=== PATIENT | male | born 1990 | race American Indian/Alaskan Native ===

== ENCOUNTER 2017-11-04 14:01 | Emergency (ER) | payer SELFPAY ==
[2017-11-04 14:12] VITALS: BP 118/74
[2017-11-04 14:43] LABS: Bilirubin,Urine NEG (Negative); Blood,Urine NEG (Negative); Color,Urine Yellow (Yellow); Mucus,Urine FEW /HPF; Protein,Urine <15 mg/dL mg/dL (Negative); RBC,Urine < 1.0 /HPF (0.0-6.0); Urobilinogen,Urine < 2.0 mg/dL (<2.0)
--- NOTE | 2017-11-04 15:14 | Emergency Department Report ---
Chief Complaint: Urogenital-Male Stated Complaint: STD CHECK Time Seen by Provider: 11/04/17 15:14 - HPI History of Present Illness: This is a 27-year-old male here reports that he is here to get checked for STD and that he gave his girlfriend trichomonas. He said he called today and the girlfriend told him that she was diagnosed with Trichomonas. Reports that he is having discharge. He reports that he was having pain on urination but says that he is having discharge and also reported that he was having testicular pain for 3 weeks to triage nurse the patient denies he said he has Trichomonas and is here to be treated. Painful urination is 5 out of 10 that is burning in and not associated with just urinating but with discharge. Denies any penile rash or lesion. Denies any blood in urine. Denies any abdominal or back pain. Denies any fever or chills. No medication taken prior to coming to the emergency room. He does practice unsafe sex. - ROS Review of Systems: Positive penile burning and with discharge and positive exposure to Trichomonas. Negative abdominal and back pain. Negative nausea or vomiting. Negative fever or chills. Negative penile rash or lesion. Negative nausea or vomiting or sore throat. - Exam Vital Signs: Vital Signs 11/04/17 14:09 Temperature 98.6 F Pulse Rate 78 Respiratory 18 Rate Blood Pressure 118/74 O2 Sat by Pulse 98 Oximetry Physical Exam: Gen: This is a healthy male well-nourished well-developed in no acute distress. Nontoxic in appearaNCE Abdomen soft, nontender to palpate in all quadrants no guarding no rebound tenderness and no CVA tenderness. MSE screening note: Focused history and physical exam performed. Due to findings the following was ordered: Lab Results 11/04/17 Range/Units 14:22 Urine Color Yellow (Yellow) Urine Turbidity Clear (Clear) Urine pH 6.0 (5.0-7.0) Ur Specific [place] 1.023 (1.003-1.030) Urine Protein <15 mg/dl (Negative) mg/dL Urine Glucose (UA) Neg (Negative) mg/dL Urine Ketones Neg (Negative) mg/dL Urine Blood Neg (Negative) Urine Nitrite Neg (Negative) Urine Bilirubin Neg (Negative) Urine Urobilinogen < 2.0 (<2.0) mg/dL Ur Leukocyte Esterase Neg (Negative) Urine WBC (Auto) 1.0 (0.0-6.0) /HPF Urine RBC (Auto) < 1.0 (0.0-6.0) /HPF U Epithel Cells (Auto) < 1.0 (0-13.0) /HPF Urine Mucus Few /HPF ED Medical Decision Making - Lab Data Lab Results 11/04/17 Range/Units 14:22 Urine Color Yellow (Yellow) Urine Turbidity Clear (Clear) Urine pH 6.0 (5.0-7.0) Ur Specific [place] 1.023 (1.003-1.030) Urine Protein <15 mg/dl (Negative) mg/dL Urine Glucose (UA) Neg (Negative) mg/dL Urine Ketones Neg (Negative) mg/dL Urine Blood Neg (Negative) Urine Nitrite Neg (Negative) Urine Bilirubin Neg (Negative) Urine Urobilinogen < 2.0 (<2.0) mg/dL Ur Leukocyte Esterase Neg (Negative) Urine WBC (Auto) 1.0 (0.0-6.0) /HPF Urine RBC (Auto) < 1.0 (0.0-6.0) /HPF U Epithel Cells (Auto) < 1.0 (0-13.0) /HPF Urine Mucus Few /HPF - Medical Decision Making Patient here to be treated for Trichomonas. He reported that he had testicular pain which has resolved and that he was having urinary burning but his urinalysis is negative. He said that he was told by his girlfriend that he has Trichomonas which he gave to her and he is here to be treated with no other symptoms. He said he is having some penile discharge that feels irritated. I saw patient and discussed with him that his urinalysis was negative for he does have a urinary tract infection I discussed with him that he will need to be charged to feed to be seen back as is medical complaints is not an emergency. I gave him his urinalysis results and told him that that was normal but he is given a need to pay to have STD treatment and testing done as he can go to the health department or multiple other places in the community which we gave to him. Patient was not happy with the decision and patient access spoke with patient and gave him several community referral. He decided to go elsewhere to be treated for STD. I told him that he needs to make sure that he goes to the health department and get tested and treated and everyone that he came in contact which should be notified regarding concerns for Trichomonas. ED Disposition for MSE Clinical Impression: Penile discharge, Dysuria, Concern about STD in male without diagnosis Disposition: MED SCREENING EXAM-LEFT Is pt being admited?: No Does the pt Need Aspirin: No Condition: Stable Referrals: PRIMARY CARE, [Primary Care Provider] - 3-5 Days
--- NOTE | 2017-11-04 20:17 | Emergency Department Report ---
ED Headache HPI - General Chief Complaint: Urogenital-Male Stated Complaint: STD CHECK Time Seen by Provider: 11/04/17 15:14 Source: patient, family Exam Limitations: no limitations - History of Present Illness Allergies/Adverse Reactions: Allergies Penicillins Allergy (Verified 11/04/17 14:09) Unknown ED Review of Systems ROS: Stated complaint: STD CHECK Other details as noted in HPI ED Past Medical Hx - Past Medical History Previous Medical History?: No - Surgical History Past Surgical History?: No - Social History Smoking Status: Current Every Day Smoker Substance Use Type: Alcohol ED Physical Exam - General Limitations: No Limitations ED Course Vital Signs 11/04/17 14:09 Temperature 98.6 F Pulse Rate 78 Respiratory 18 Rate Blood Pressure 118/74 O2 Sat by Pulse 98 Oximetry Critical care attestation.: If time is entered above; I have spent that time in minutes in the direct care of this critically ill patient, excluding procedure time. ED Disposition Condition: Stable Referrals: PRIMARY CARE, [Primary Care Provider] - 3-5 Days
== END 2017-11-04 21:38 | disposition left against medical advice (07) ==
LOC: ED 14:01
DX: Z20.2 Contact with and (suspected) exposure to infections with a predominantly sexual mode of transmission (principal); Z88.0 Allergy status to penicillin
CPT/HCPCS: 81001; 99283